=== PATIENT | male | born 2000 | race Caucasian/White ===

== ENCOUNTER 2024-04-29 23:20 | Emergency (ER) | payer OTHER ==
[2024-04-29] MEDS: Diphtheria,Pertussis(Acell),Tetanus Vaccine 0.5 ML Syringe IM ONE (23:32)
[2024-04-29] MEDS: Lidocaine 1% 5 ML VIAL INJECT ONE (23:41)
== END 2024-04-30 00:08 | disposition home or self-care (01) ==
LOC: MW.ED 23:20
DX: S61.012A Laceration without foreign body of left thumb without damage to nail, initial encounter (principal); Z23 Encounter for immunization; W26.8XXA Contact with other sharp object(s), not elsewhere classified, initial encounter; Y93.89 Activity, other specified
CPT/HCPCS: 12001; 90471; 99282; J2003

== ENCOUNTER 2024-07-03 21:17 | Emergency (ER) | payer OTHER ==
[2024-07-03] MEDS: Amoxicillin/Clavulanate K 500-125 MG Tab PO ONE (22:34)
[2024-07-03] MEDS: Amoxicillin/Clavulanate K 875-125 MG Tab PO STA (22:35)
== END 2024-07-03 22:38 | disposition home or self-care (01) ==
LOC: MW.ED 21:17
DX: S61.451A Open bite of right hand, initial encounter (principal); Z79.899 Other long term (current) drug therapy; W54.0XXA Bitten by dog, initial encounter; Y93.89 Activity, other specified
CPT/HCPCS: 99283; A9270; 99282

== ENCOUNTER 2024-07-04 01:17 | Emergency (ER) | payer OTHER ==
[2024-07-04] MEDS ORDERED: Rabies Immune Globulin/PF (HyperRAB) 300 UNIT/ML 1 ML SDV IM ONE (01:21)
[2024-07-04] MEDS: Rabies Vaccine (Avian) 2.5 Unit Inj Kit IM ONE (02:06)
[2024-07-04] MEDS: Rabies Immune Globulin/PF (HyperRAB) 300 UNIT/ML 1 ML SDV IM ONE (02:06)
== END 2024-07-04 02:12 | disposition home or self-care (01) ==
LOC: MW.ED 01:17
DX: S61.250A Open bite of right index finger without damage to nail, initial encounter (principal); Z23 Encounter for immunization; Z79.899 Other long term (current) drug therapy; W54.0XXA Bitten by dog, initial encounter; Y93.89 Activity, other specified
CPT/HCPCS: 90375; 90471; 90675; 96372; 99283; 99283-25

== ENCOUNTER 2024-07-07 01:48 | Emergency (ER) | payer OTHER ==
[2024-07-07] MEDS: Rabies Vaccine (Avian) 2.5 Unit Inj Kit IM ONE (02:17)
== END 2024-07-07 02:28 | disposition home or self-care (01) ==
LOC: MW.ED 01:48
DX: S61.451A Open bite of right hand, initial encounter (principal); Z23 Encounter for immunization; W54.0XXA Bitten by dog, initial encounter
CPT/HCPCS: 90471; 90675; 99283; 99283-25